=== PATIENT | male | born 1965 | race Caucasian/White ===

== ENCOUNTER → 2017-05-06 | Day surgery (SDC) | payer OTHER ==
[2017-05-04 07:35] VITALS: Ht 198.1 cm; Wt 113.6 kg
[~2017-05-06] VITALS: Ht 198.1 cm; Wt 113.6 kg
[~2017-05-06] MED LIST: CALC500C3 PO; LIDOCAINE HCL 2% 2 ML VIAL (20MG/ML) ONE; PROPOFOL IV EMULSION 10 MG/ML 20 ML VIAL IV ONE; SODIUM CHLORIDE 0.9% 500ML 500 ML IV ONE
[2017-05-06 14:59] VITALS: TEMP 36.5
--- NOTE | 2017-05-06 15:26 | Endo History and Physical ---
History & Physical Date of Service: May 06, 2017. Chief Complaint: diarrhea Referring Physician: Dr. Davalos History of Present Illness 52 yo CM who presents for colonoscopy secondary to diarrhea. Past Surgical History Hx Cardiac Surgery: No Hx Internal Defibrillator: No Hx Pacemaker: No Hx Abdominal Surgery: No Hx of Implantable Prosthesis: No Hx Post-Op Nausea and Vomiting: No Hx Cancer Surgery: No Hx Thoracic Surgery: No Hx Orthopedic: Yes (KNEE SURGERY) Hx Urinary Tract Surgery: No Family History Colon CA Social History Smoking Status: Never Smoker Hx Substance Use: No Hx Alcohol Use: Yes (OCCASIONAL/SOCIAL) Allergies Coded Allergies: No Known Allergies (Unverified , 05/06/17) Current Medications Reported Home Medications Medications Dose Route/Sig Max Daily Dose Days Date Category Tums (Calcium Carbonate) 500 Mg Chew 1 Tab PO UD PRN 05/04/17 Reported Vital Signs Weight (Kilograms): 113.64 Height (Feet): 6 Height (Inches): 6 Date Time Temp Pulse Resp B/P (MAP) Pulse Ox O2 Delivery O2 Flow Rate FiO2 05/06/17 14:59 36.5 63 18 106/71 (83) 97 Room Air Physical Exam General Appearance: WD/WN, no apparent distress Respiratory/Chest: Auscultation: breath sounds normal Cardiovascular: Heart Auscultation: RRR Abdomen: Bowel Sounds: normal Inspection & Palpation: soft, non-distended, no tenderness, guarding & rebound Assessment and Plan Assessment: 52 yo CM who presents for colonoscopy secondary to diarrhea. Plan: Proceed with colonoscopy.
--- NOTE | 2017-05-06 16:05 | Discharge Instructions ---
Endoscopy Patient Instructions Date / Procedure(s) Performed May 06, 2017. Colonoscopy Allergy Information Coded Allergies: No Known Allergies (Unverified , 05/06/17) Discharge Date / Findings May 06, 2017. Random colon biopsies Stool aspirate collected Internal hemorrhoids Medication Instructions OK to resume all medications today as prescribed Reported Home Medications Medications Dose Route/Sig Max Daily Dose Days Date Category Tums (Calcium Carbonate) 500 Mg Chew 1 Tab PO UD PRN 05/04/17 Reported Provider Instructions Activity Restrictions - No exercising or heavy lifting for 24 hours. - Do not drink alcohol the day of the procedure. - Do not drive a car or operate machinery until the day after the procedure. - Do not make any important decisions or sign important papers in 24 hours after the procedure. Following Day: - Return to full activity which may include returning to work/school. Diet Start your diet with liquids and light foods (jello, soup, juice, toast). Then eat your usual diet if not nauseated. Treatment For Common After Affects For mild abdominal pain, bloating, or excessive gas: - Rest - Eat lightly - Lie on right side Follow-Up Information Follow-up with Dr. Davalos as scheduled Anesthesia Information What You Should Know You have had a procedure that required some medicine to reduce anxiety and discomfort. This treatment is called moderate sedation. After receiving the treatment, you may be sleepy, but you will be able to breathe on your own. The effects of the treatment may last for several hours. Follow these instructions along with Activity/Diet recommendations noted above: * Do NOT do anything where dizziness or clumsiness would be dangerous. * Rest quietly at home today, then you can be up and about tomorrow. * Have a responsible person stay with you the rest of today. * You may have had an I.V. today. If so, you may take the dressing off later today. Recommendations Call your doctor if: * Trouble breathing * Continuous vomiting for more than 24 hours * Temperature above 101 degrees * Severe abdominal pain or bloating * Pain not relieved by pain medicine ordered * There is increased drainage or redness from any incision * A large amount of rectal bleeding greater than 2-3 tablespoons. (If you had a polyp/s removed or have hemorrhoids, a small amount of blood - from the rectum is to be expected.) * You have any unanswered questions or concerns. IN THE EVENT OF A SERIOUS EMERGENCY, GO TO THE NEAREST EMERGENCY ROOM Your discharge instructions were prepared by provider Juan Diego Carcamo. Patient Instructions Signature Page Jus Mic Patient (or Guardian) Signature/Date: I have read and understand the instructions given to me by my caregivers. Caregiver/RN/Doctor Signature/Date: The above-named patient and/or guardian has received patient instructions on this date. + Original Patient Signature Page (only) stays with chart. Please make copy for patient.
[2017-05-06 16:24] VITALS: BP 92/69; PULSE 64; O2SAT 95
--- NOTE | 2017-05-06 16:50 | Anesthesiology Progress Note ---
Anesthesia Post Op Note Date & Time May 06, 2017 at 16:49 Vital Signs Pain Intensity: 0 Vital Signs Past 12 Hours Date Time Temp Pulse Resp B/P (MAP) Pulse Ox O2 Delivery O2 Flow Rate FiO2 05/06/17 16:24 64 18 92/69 (77) 95 Room Air 05/06/17 16:13 114 18 114/70 (85) 97 Room Air 05/06/17 16:06 68 18 105/61 (76) 98 Room Air 05/06/17 15:59 68 18 94/54 (67) 97 Room Air 05/06/17 14:59 36.5 63 18 106/71 (83) 97 Room Air Notes Mental Status: alert / awake / arousable, participated in evaluation Pt Amnestic to Procedure: Yes Nausea / Vomiting: adequately controlled Pain: adequately controlled Airway Patency, RR, SpO2: stable & adequate BP & HR: stable & adequate Hydration State: stable & adequate Anesthetic Complications: no major complications apparent
--- NOTE | 2017-05-11 09:48 | GI REPORT ---
Procedure Date: 05/06/2017 3:32 PM Procedure: Colonoscopy Indications: Chronic diarrhea Medicines: Monitored Anesthesia Care Complications: No immediate complications. Estimated Blood Loss: Estimated blood loss: none. Procedure: Pre-Anesthesia Assessment: - Prior to the procedure, a History and Physical was performed, and patient medications and allergies were reviewed. The patient's tolerance of previous anesthesia was also reviewed. The risks and benefits of the procedure and the sedation options and risks were discussed with the patient. All questions were answered, and informed consent was obtained. Prior Anticoagulants: The patient has taken no previous anticoagulant or antiplatelet agents. ASA Grade Assessment: II - A patient with mild systemic disease. After reviewing the risks and benefits, the patient was deemed in satisfactory condition to undergo the procedure. After I obtained informed consent, the scope was passed under direct vision. Throughout the procedure, the patient's blood pressure, pulse, and oxygen saturations were monitored continuously. The scope was introduced through the anus and advanced to the terminal ileum. The colonoscopy was performed without difficulty. The patient tolerated the procedure well. The quality of the bowel preparation was good. The terminal ileum, ileocecal valve, appendiceal orifice, and rectum were photographed. Findings: The perianal and digital rectal examinations were normal. The colon (entire examined portion) appeared normal. Biopsies for histology were taken with a cold forceps from the entire colon for evaluation of microscopic colitis. Fluid aspiration for Stool studies was performed. Non-bleeding internal hemorrhoids were found during retroflexion. The hemorrhoids were small. Impression: - The entire examined colon is normal. Biopsied. Fluid aspiration performed. - Non-bleeding internal hemorrhoids. Recommendation: - Resume previous diet. - Continue present medications. - Repeat colonoscopy for surveillance based on pathology results. - Return to primary care physician as previously scheduled. Juan Diego Carcamo DO 05/11/2017 9:47:23 AM This report has been signed electronically. Note Initiated On: 05/06/2017 3:32 PM I attest to the content of the Intraoperative Record and orders documented therein, exceptions below
== END | disposition home or self-care (01) ==
LOC: C.GI 14:31
PROVIDERS: ATTEND Internal Medicine
DX: R19.7 Diarrhea, unspecified (principal); Z80.0 Family history of malignant neoplasm of digestive organs; K64.8 Other hemorrhoids

== ENCOUNTER → 2017-05-11 | Outpatient (CLI) | payer OTHER ==
[~2017-05-11] MED LIST changes: -LIDOCAINE HCL 2% 2 ML VIAL (20MG/ML) ONE; -PROPOFOL IV EMULSION 10 MG/ML 20 ML VIAL IV ONE; -SODIUM CHLORIDE 0.9% 500ML 500 ML IV ONE
--- NOTE | 2017-05-11 13:02 | DIAGNOSTIC IMAGING REPORT ---
ABDOMEN 2VIEW W/PA CHEST RTN CLINICAL HISTORY: R10.12 LUQ abdominal pain pain. Nausea. COMPARISON STUDY: No previous studies for comparison. FINDINGS: The soft tissues, psoas shadows, renal outlines and intestinal gas pattern appear normal. There is no evidence for bowel obstruction. There is no evidence for free intraperitoneal air. No abnormal abdominal calcifications are seen. A frontal view of the chest was performed and is unremarkable. IMPRESSION: Normal study. The above report was generated using voice recognition software. It may contain grammatical, syntax or spelling errors. Electronically signed by: Brendan Hernandez M.D. 05/11/2017 1:01 PM Dictated Date/Time: 05/11/2017 1:00 PM
== END | disposition home or self-care (01) ==
LOC: C.RADBC 12:08
PROVIDERS: ATTEND Registered Nurse
DX: R10.12 Left upper quadrant pain (principal)

== ENCOUNTER 2023-09-02 13:29 | Inpatient (IN) ==
[2023-09-02 14:45] LABS: Basophils # (auto) 0.03 K/uL (0.00-0.20); Basophils % (auto) 0.3 %; Eosinophils # (auto) 0.12 K/uL (0.00-0.50); Eosinophils % (auto) 1.4 %; Hematocrit (blood only) 38.5 % (42.0-52.0); Hemoglobin 12.8 g/dl (14.0-18.0); Immature Granulocytes # (auto) 0.01 K/uL (0.01-0.20); Immature Granulocytes % (auto) 0.1 %; Lymphocytes # (auto) 2.21 K/uL (1.20-3.40); Lymphocytes % (auto) 25.6 %; Mean Corpuscular Hemoglobin 32.2 pg (25.0-34.0); Mean Corpuscular Hgb Conc 33.2 g/dL (32.0-36.0); Mean Corpuscular Volume 96.7 fL (80.0-100.0); Monocytes # (auto) 0.73 K/uL (0.11-0.59); Monocytes % (auto) 8.5 %; Neutrophils # (auto) 5.53 K/uL (1.40-6.50); Neutrophils % (auto) 64.1 %; Platelet Count 213 K/uL (130-400); RDW Coefficient of Variation 12.8 % (11.5-14.5); RDW Standard Deviation 45.2 fL (36.4-46.3); Red Blood Count 3.98 M/uL (4.70-6.10); White Blood Count 8.63 K/ul (4.8-10.8)
[2023-09-02 14:48] LABS: Albumin Globulin Ratio 1.2 (0.9-2); Albumin Level 3.6 gm/dl (3.4-5.0); Bilirubin,Total 1.3 mg/dl (0.2-1.0); Calcium 8.6 mg/dl (8.6-10.3); Creatinine Clr Calc Pharmacy 153.8 ml/min; Est GFR (African American) 117.8 ml/min; Est GFR (Non-African American) 101.7 ml/min; Magnesium 1.8 mg/dl (1.7-2.4); Potassium 3.9 mmol/L (3.5-5.1); Total Protein 6.6 gm/dl (6.0-8.3)
[2023-09-02] MEDS: METOPROLOL TARTRATE 1 MG/ML VIAL IV STA ×2 (14:51→15:57)
[2023-09-02 14:56] LABS: Troponin I High Sensitivity 7.6 pg/ml (0-20)
[2023-09-02 15:00] LABS: INR 1.1 (0.9-1.1); Prothrombin Time 11.9 Seconds (9.0-12.0)
[2023-09-02 15:04] LABS: Thyroid Stimulating Hormone 1.269 uIu/ml (0.300-4.500)
--- NOTE | 2023-09-02 15:04 | XRay Report ---
XR chest 1V portable HISTORY: new onset afib, egd COMPARISON: Chest 08/20/2023. FINDINGS: No pneumothorax. No pleural effusions. The lungs are clear. No acute fractures. The cardiac silhouette remains top normal in size. IMPRESSION: No acute process. ACT 112: Negative or not required by law. Electronically signed by: Iban Cuevas M.D. 09/02/2023 3:03 PM
[2023-09-02] MEDS: SODIUM CHLORIDE 0.9% 1,000 ML IV ONE (15:25)
--- NOTE | 2023-09-02 15:29 | Emergency Department Note ---
Impression & Plan Atrial fibrillation with rapid ventricular response ED Provider Note Provider: Stan Shipman MD DATE OF SERVICE: 09/02/2023 CHIEF COMPLAINT: New onset A-fib from GI HISTORY OF PRESENT ILLNESS: Patient is a 58-year-old gentleman undergoing workup for some cough issues underwent an EGD today with GI. Afterwards noted to be a new onset A-fib. Patient without history other family history with father. Patient denies significant symptoms. Denies feeling short of breath or chest pain or arm or neck pain. No significant leg swelling reported. States did not have breakfast this morning but was fine yesterday. Father does have a history of A-fib. Patient denies any bleeding issues in the past. Not on blood pressure medication but does have a thyroid history on levothyroxine. No recent fevers. Has been under some stress helping care for family recently. No stomach discomfort or significant nausea at this time. No significant again chest pain. PAST MEDICAL HISTORY: As noted above MEDICATIONS: Reviewed home medications SOCIAL HISTORY: Non-smoker, elementary special education teacher PHYSICAL EXAM: GENERAL: alert and oriented in no acute distress on stretcher Head: normocephalic and atraumatic EYES: No injection, discharge or icterus. NECK: Trachea midline. ENT: Mucous membranes pink and moist. LUNGS: Airway patent. No retractions. Breath sounds clear with good air entry bilaterally. HEART: Irregular regular tachycardic rate and rhythm. No chest wall tenderness ABDOMEN: Soft and non-tender, without guarding or rebound. SKIN: Acyanotic, warm, dry, without rashes EXTREMITIES: Without swelling, tenderness or deformity NEUROLOGICAL: No focal deficits. No aphasia. No facial droop or slurred speech. Normal strength and tone in the extremities. Sensation to gross touch normal. Ambulatory. EK bpm atrial fibrillation with rapid ventricular response. No clear acute ST segment elevation with a QTc of 420. CONTINUOUS CARDIAC MONITORING: was ordered and showed a heart rate of 110s-160s bpm in atrial fibrillation Patient's laboratory studies and imaging reviewed. Differential includes Premature contractions, electrolyte abnormality, cardiac dysrhythmia, thyroid dysfunction, pulmonary embolism, infection, gastrointestinal, as well as other pathologies. IMPRESSION/MEDICAL DECISION MAKING: Family history of new personal history appears to be new onset atrial fibrillation. Given IV dose of metoprolol. Given some IV fluids his blood pressure afterwards a little bit low but he is not symptomatic. Heart rate still somewhat elevated. Chest x-ray reassuring no evidence of perforation benign abdomen. Blood work here without significant anemia hemoglobin 12.8. Normal white blood cell count. No single isolated abnormality signs of renal dysfunction. TSH normal. Troponin normal. Again no chest discomfort or pressure. Not feeling lightheaded or dizzy. Later blood pressure somewhat low here but patient without significant symptoms. Reposition the cuff and blood pressure is improved. Given a second dose of IV metoprolol without real improvement of his rapid A-fib. Blood work again otherwise reassuring. Given some IV magnesium. Given the recalcitrant nature of his A-fib to several dose of metoprolol, proceeded with use of diltiazem and diltiazem drip. Discussed the patient further observation overnight to determine appropriate rate control regimen given his recalcitrant A-fib RVR. [id number] 2 is not significant elevated and will defer any anticoagulation to hospitalist and levee superintendent at this time. DIAGNOSIS: New onset rapid atrial fibrillation DISPOSITION: Hospitalist will evaluate Patient was agreeable with this plan. Critical Care I have personally spent 31 minutes of critical care time in the direct management of this patient. This includes bedside care, interpretation of diagnostic studies, and testing, discussion with consultants, patient, and family members, and other required patient management activities. These 31 minutes is in excess of all separately billable procedures. Past Med/Surg History Problem List (Updated 09/02/23 @ 19:21 by Stan Shipman M.D.) Atrial fibrillation with rapid ventricular response (Acute) Encounter for pre-operative examination Medical History Chronic cough GERD (gastroesophageal reflux disease) Hypothyroidism Surgical History Hx of arthroscopy of knee torn meniscus Hx of colonoscopy History of oral surgery 2022 Family History Father Hypertension Prostate cancer Other No family history of adverse response to anesthesia No family history of bleeding disorder Social History Smoking Status: Never smoker Tobacco Type: Cigarettes Second Hand Exposure: No; Do You Dip or Chew Tobacco: No; Hx Alcohol Use: Yes Alcohol type: beer and wine Alcohol Intake Frequency Comment: socially Hx Substance Use: No Preferred Language: Qatari Communication Ability: Effective Welder Tech Required: No Beliefs That Will Affect Care: None marital status: Single Current Living Situation: Significant Other current occupational status: employed current occupation: Teacher Feels Safe at Home: Yes Assistive Devices: Glasses Allergies Allergies Allergy/AdvReac Type Severity Reaction Status Date / Time amoxicillin AdvReac Unknown Gastrointestinal Verified 09/02/23 11:43 Upset Home Meds Home Medications Medication Instructions Recorded Confirmed levothyroxine 175 mcg capsule 175 mcg PO HS 04/08/23 09/02/23 multivitamin 1 tab PO DAILY 04/08/23 09/02/23 diclofenac sodium 75 mg 75 mg PO BID 07/30/23 09/02/23 tablet,delayed release esomeprazole magnesium 40 mg 40 mg PO BID 08/31/23 09/02/23 capsule,delayed release (Nexium) cholecalciferol (vitamin D3) 25 25 mcg PO DAILY 09/02/23 09/02/23 mcg (1,000 unit) tablet (Vitamin D3) Results & Data (ED) Vital Signs Vital Signs - 24 hr 09/02/23 13:33 09/02/23 13:38 09/02/23 13:39 Temperature 36.8 C Temperature Source Oral Pulse Rate 136 H 135 H 133 H Pulse Rate [Right Finger] Pulse Rate from SpO2 Sensor 94 H Pulse Rhythm Regular Pulse Strength Normal Respiratory Rate 20 14 Respiratory Effort / Characteristics Non-Labored Respiratory Depth Normal Respiratory Pattern Regular Blood Pressure 111/91 111/91 Blood Pressure [Right Arm] Blood Pressure Mean 97 97 Blood Pressure Mean [Right Arm] Blood Pressure Position Sitting Pulse Oximetry 96 95 Oxygen Delivery Method Room Air Sepsis Recent Fever Within 48 Hours No Sepsis New/Unexplained Change in Mental Status N/A Sepsis Action Taken by Nursing No Action Required 09/02/23 14:00 09/02/23 14:51 09/02/23 14:51 Temperature Temperature Source Pulse Rate 155 H 141 H 132 H Pulse Rate [Right Finger] Pulse Rate from SpO2 Sensor 111 H Pulse Rhythm Pulse Strength Respiratory Rate 16 14 Respiratory Effort / Characteristics Respiratory Depth Respiratory Pattern Blood Pressure 114/73 114/73 Blood Pressure [Right Arm] Blood Pressure Mean 86 Blood Pressure Mean [Right Arm] Blood Pressure Position Pulse Oximetry 95 97 Oxygen Delivery Method Room Air Sepsis Recent Fever Within 48 Hours Sepsis New/Unexplained Change in Mental Status Sepsis Action Taken by Nursing 09/02/23 15:00 09/02/23 15:09 09/02/23 15:16 Temperature Temperature Source Pulse Rate 124 H 132 H 125 H Pulse Rate [Right Finger] Pulse Rate from SpO2 Sensor 126 H 78 Pulse Rhythm Pulse Strength Respiratory Rate 18 26 H Respiratory Effort / Characteristics Respiratory Depth Respiratory Pattern Blood Pressure 63/49 L 89/70 L Blood Pressure [Right Arm] Blood Pressure Mean 53 Blood Pressure Mean [Right Arm] Blood Pressure Position Pulse Oximetry 90 94 Oxygen Delivery Method Room Air Room Air Sepsis Recent Fever Within 48 Hours Sepsis New/Unexplained Change in Mental Status Sepsis Action Taken by Nursing 09/02/23 15:33 09/02/23 15:57 09/02/23 16:12 Temperature Temperature Source Pulse Rate 128 H 137 H 84 Pulse Rate [Right Finger] Pulse Rate from SpO2 Sensor Pulse Rhythm Pulse Strength Respiratory Rate 20 Respiratory Effort / Characteristics Respiratory Depth Respiratory Pattern Blood Pressure 113/72 113/72 99/71 L Blood Pressure [Right Arm] Blood Pressure Mean 85 Blood Pressure Mean [Right Arm] Blood Pressure Position Pulse Oximetry 95 Oxygen Delivery Method Room Air Sepsis Recent Fever Within 48 Hours Sepsis New/Unexplained Change in Mental Status Sepsis Action Taken by Nursing 09/02/23 16:27 09/02/23 16:51 09/02/23 17:13 Temperature Temperature Source Pulse Rate 124 H 130 H Pulse Rate [Right Finger] 114 H Pulse Rate from SpO2 Sensor 76 Pulse Rhythm Pulse Strength Respiratory Rate 18 20 14 Respiratory Effort / Characteristics Respiratory Depth Normal Respiratory Pattern Blood Pressure 99/71 L Blood Pressure [Right Arm] 99/71 L Blood Pressure Mean 80 Blood Pressure Mean [Right Arm] 80 Blood Pressure Position Pulse Oximetry 96 94 96 Oxygen Delivery Method Room Air Room Air Room Air Sepsis Recent Fever Within 48 Hours Sepsis New/Unexplained Change in Mental Status Sepsis Action Taken by Nursing 09/02/23 17:30 09/02/23 17:48 Temperature Temperature Source Pulse Rate 96 H 95 H Pulse Rate [Right Finger] Pulse Rate from SpO2 Sensor 57 L Pulse Rhythm Pulse Strength Respiratory Rate 16 Respiratory Effort / Characteristics Respiratory Depth Respiratory Pattern Blood Pressure 89/60 L Blood Pressure [Right Arm] Blood Pressure Mean 69 Blood Pressure Mean [Right Arm] Blood Pressure Position Pulse Oximetry 95 Oxygen Delivery Method Room Air Sepsis Recent Fever Within 48 Hours Sepsis New/Unexplained Change in Mental Status Sepsis Action Taken by Nursing Laboratory Data 09/02/23 14:10 09/02/23 14:10 Lab Results 09/02/23 Range/Units 14:10 WBC 8.63 (4.8-10.8) K/ul RBC 3.98 L (4.70-6.10) M/uL Hgb 12.8 L (14.0-18.0) g/dl Hct 38.5 L (42.0-52.0) % MCV 96.7 (80.0-100.0) fL MCH 32.2 (25.0-34.0) pg MCHC 33.2 (32.0-36.0) g/dL RDW Std Deviation 45.2 (36.4-46.3) fL RDW Coeff of Vanna 12.8 (11.5-14.5) % Plt Count 213 (130-400) K/uL MPV 10.0 (9.4-12.4) fL Immature Gran % (Auto) 0.1 % Neut % (Auto) 64.1 % Lymph % (Auto) 25.6 % [place] % (Auto) 8.5 % Eos % (Auto) 1.4 % Baso % (Auto) 0.3 % Neut # (Auto) 5.53 (1.40-6.50) K/uL Lymph # (Auto) 2.21 (1.20-3.40) K/uL [place] # (Auto) 0.73 H (0.11-0.59) K/uL Eos # (Auto) 0.12 (0.00-0.50) K/uL Baso # (Auto) 0.03 (0.00-0.20) K/uL Immature Gran # (Auto) 0.01 (0.01-0.20) K/uL PT 11.9 (9.0-12.0) Seconds INR 1.1 (0.9-1.1) Sodium 137 (136-145) mmol/L Potassium 3.9 (3.5-5.1) mmol/L Chloride 106 (98-107) mmol/L Carbon Dioxide 25 (21-32) mmol/L Anion Gap 6 (3-11) BUN 20 (6-23) mg/dl Creatinine 0.74 (0.6-1.4) mg/dl Est Cr Clr Drug Dosing 153.8 ml/min Est GFR ( Amer) 117.8 ml/min Est GFR (Non-Af Amer) 101.7 ml/min BUN/Creatinine Ratio 27.0 H (10-20) Glucose 82 (70-99(Fasting)) mg/dl Calcium 8.6 (8.6-10.3) mg/dl Magnesium 1.8 (1.7-2.4) mg/dl Total Bilirubin 1.3 H (0.2-1.0) mg/dl AST 18 (13-39) U/L ALT 15 (7-52) U/L Alkaline Phosphatase 55 (34-104) U/L Troponin I High Sens 7.6 (0-20) pg/ml Total Protein 6.6 (6.0-8.3) gm/dl Albumin 3.6 (3.4-5.0) gm/dl Globulin 3.0 (2.5-4.0) gm/dl Albumin/Globulin Ratio 1.2 (0.9-2) TSH 1.269 (0.300-4.500) uIu/ml Administered Medications Diltiazem HCl 125 mg/ Dextrose 125 mls @ 5 mls/hr IV .Q24H DEANGELO; Protocol Stop: 10/02/23 16:14 Last Admin: 09/02/23 16:53 Dose: 5 mg/hr, 5 mls/hr Documented By: CLEMENTINE Co-signed By: [facility] [place]continued Medications Diltiazem HCl (Diltiazem Hcl 5 Mg/Ml 5 Ml Vial) 10 mg IV NOW STA Stop: 09/02/23 16:12 Last Admin: 09/02/23 16:53 Dose: 10 mg Documented By: CLEMENTINE Co-signed By: BENITEZ Sodium Chloride (Nss) 1,000 mls @ 999 mls/hr IV .Q1H1M ONE Stop: 09/02/23 16:23 Last Infusion: 09/02/23 17:09 Dose: Infused Documented By: Admin: 09/02/23 15:25 Dose: 999 mls/hr Documented By: BENITEZ Magnesium Sulfate/Dextrose (Magnesium Sulfate / D5w) 1 gm in 100 mls @ 200 mls/hr IV Q30M DEANGELO Stop: 09/02/23 16:59 Last Infusion: 09/02/23 17:28 Dose: Infused Documented By: Admin: 09/02/23 16:54 Dose: 200 mls/hr Documented By: Infusion: 09/02/23 16:38 Dose: Infused Documented By: Admin: 09/02/23 16:08 Dose: 200 mls/hr Documented By: [facility] [place] Metoprolol Tartrate (Metoprolol Tartrate 1 Mg/Ml Vial) 5 mg IV NOW STA Stop: 09/02/23 14:37 Last Admin: 09/02/23 14:51 Dose: 5 mg Documented By: [facility] [place] Metoprolol Tartrate (Metoprolol Tartrate 1 Mg/Ml Vial) 5 mg IV NOW STA Stop: 09/02/23 15:12 Last Admin: 09/02/23 15:57 Dose: 5 mg Documented By: [facility] [place] Miscellaneous (Stat Iv Infusion Titration Per Protocol) 1 each N/A NOW STA Stop: 09/02/23 16:12 Last Admin: 09/02/23 16:58 Dose: Not Given Documented By: [facility] [place] Imaging Data Radiologist's Impression: Chest X-Ray 09/02/23 13:44 XR chest 1V portable HISTORY: new onset afib, egd COMPARISON: Chest 08/20/2023. FINDINGS: No pneumothorax. No pleural effusions. The lungs are clear. No acute fractures. The cardiac silhouette remains top normal in size. IMPRESSION: No acute process. ACT 112: Negative or not required by law. Electronically signed by: Iban Cuevas M.D. 09/02/2023 3:03 PM Discharge Plan Visit Data Chief Complaint: Cardiac Assessment Stated Complaint: AFIB ED Provider: Stan Shipman Discharge Problem: Atrial fibrillation with rapid ventricular response Patient Disposition: Being Evaluated by Hospitalist Forms Stand Alone Forms: My [facility] Prescriptions Prescriptions: No Action levothyroxine 175 mcg capsule 175 mcg PO HS multivitamin Tablet 1 tab PO DAILY cholecalciferol (vitamin D3) [Vitamin D3] 25 mcg (1,000 unit) Tablet 25 mcg PO DAILY diclofenac sodium 75 mg Tablet,Delayed Release (Dr/Ec) 75 mg PO BID esomeprazole magnesium [Nexium] 40 mg Capsule,Delayed Release(Dr/Ec) 40 mg PO BID Referrals Referrals: Robin Dumont [Primary Care Provider] -
[2023-09-02] MEDS: MAGNESIUM SULFATE / D5W 1 GM/100 ML BAG IV SCH (16:08)
[2023-09-02] MEDS: dilTIAZem HCl 5 MG/ML 5 ML VIAL IV STA (16:53)
[2023-09-02] MEDS: dilTIAZem HCL 125 MG in DEXTROSE 5% 100 ML IV SCH (16:53)
[2023-09-02] MEDS: STAT IV Infusion **Titration per Protocol STA (16:58)
--- NOTE | 2023-09-02 18:35 | Electrocardiogram Report ---
Test Reason : Blood Pressure : / mmHG Vent. Rate : 130 BPM Atrial Rate : 000 BPM P-R Int : 000 ms QRS Dur : 110 ms QT Int : 286 ms P-R-T Axes : 000 -01 029 degrees QTc Int : 420 ms Atrial fibrillation with rapid ventricular response with premature ventricular or aberrantly conducte d complexes Abnormal ECG When compared with ECG of 02-SEP-2023 12:52, No significant change was found Confirmed by Yobany Wells ([id number]) on 09/02/2023 6:35:41 PM Referred By: REFERRED SELF Confirmed By:Bandar Wells
--- NOTE | 2023-09-02 18:47 | History & Physical Report ---
Date of Service September 02, 2023 Assessment & Plan (1) Atrial fibrillation with rapid ventricular response: (2) New onset atrial fibrillation: (3) Hypotension: (4) GERD (gastroesophageal reflux disease): (5) Hypothyroidism: Plan Patient is a 58 yo M w/ a PMHx of GERD (w/ cough), hypothyroidism, surgical Hx of colonoscopy, EGD, and arthroscopy of knee who presented with atrial fibrillation after getting an EGD earlier this morning. 1) New onset atrial fibrillation/ AFib w/ RVR - MgSO4, 1 g, IV, given; 2 x metoprolol, 5 mg, IV given; diltiazem, 10 mg, IV given; placed on diltiazem, 125 mg/24 hr, IV drip - metoprolol, 25 mg, PO, q6hr after BP has normalized and convert from diltiazem drip - order TTE, consider ordering A1C - patient w/ BMI of 28.7, only 1-2 alcohol drinks/month, no HTN, no T2DM - [id number] score, 0 --> anticoagulation not indicated - Mg, 1.8 and K, 3.9 - repeat BMP and Mg for AM labs 2) Hypotension - patient with BP's < 90/60 - give 1000 mL LR bolus 3) Hypothyroidism - continue levothyroxine, 175 mcg - TSH, 1.27 4) GERD/chronic cough/ S/P EGD - pantoprazole 40 mg, PO, BID - discontinue diclofenac during pt's hospital stay Code status: Full code Disposition: PCT-Tele DVT prophylaxis: ambulation FENGI: Regular diet History of Present Illness Chief Complaint: New onset atrial fibrillation after an EGD this morning Primary Care Provider: Robin Dumont Patient is a 58 yo M w/ a PMHx of GERD (w/ cough), hypothyroidism, surgical Hx of colonoscopy, EGD, and arthroscopy of knee who presented with atrial fibrillation after getting an EGD earlier this morning. Currently, although he is in AFib, he is rate-controlled, after receiving metoprolol, 5 mg x 2 doses in ED, followed by diltiazem, 125 mg and diltiazem, 10 mg. Patient does not endorse currently feeling any palpitations, shortness of breath, weakness, fatigue, increased urinary frequency etc. Father also diagnosed with AFib about 5-10 years ago, and is currently ~ 96 years old. Patient able to ambulate to bathroom without feeling dizzy, lightheaded, or feeling like he'll lose his balance and fall. Patient without history of venous thromboembolism, T2DM, stroke, or HTN. Allergies Allergy/AdvReac Type Severity Reaction Status Date / Time amoxicillin AdvReac Unknown Gastrointestinal Verified 09/02/23 11:43 Upset Home Medications Medication Instructions Recorded Confirmed Type levothyroxine 175 mcg capsule 175 mcg PO HS 04/08/23 09/02/23 History multivitamin 1 tab PO DAILY 04/08/23 09/02/23 History diclofenac sodium 75 mg 75 mg PO BID 07/30/23 09/02/23 History tablet,delayed release esomeprazole magnesium 40 mg 40 mg PO BID 08/31/23 09/02/23 History capsule,delayed release (Nexium) cholecalciferol (vitamin D3) 25 25 mcg PO DAILY 09/02/23 09/02/23 History mcg (1,000 unit) tablet (Vitamin D3) Past Med/Surg History Problem List (Updated 09/02/23 @ 20:32 by Yobany Stockton MD) Hypotension New onset atrial fibrillation Atrial fibrillation with rapid ventricular response (Acute) Encounter for pre-operative examination Medical History Chronic cough GERD (gastroesophageal reflux disease) Hypothyroidism Surgical History Hx of arthroscopy of knee torn meniscus Hx of colonoscopy History of oral surgery 2022 Family History Father Hypertension Prostate cancer Other No family history of adverse response to anesthesia No family history of bleeding disorder Social History Smoking Status: Never smoker Tobacco Type: Cigarettes Second Hand Exposure: No; Do You Dip or Chew Tobacco: No; Tobacco Cessation Education Requested by Patient: No Hx Alcohol Use: Yes Alcohol type: beer and wine Alcohol Intake Frequency Comment: socially Hx Substance Use: No Preferred Language: Occitan Communication Ability: Effective Associate Relations Specialist Required: No Beliefs That Will Affect Care: None marital status: Single Current Living Situation: Alone Current Living Situation Comment: lives at home alone current occupational status: employed current occupation: Teacher Other Information That Helps Us Care for You: No Feels Safe at Home: Yes Assistive Devices: Glasses Review of Systems Constitutional: no fever, no chills, no fatigue and no weakness Eyes: no worsening vision Ear, Nose, Mouth, Throat: no dizziness, no hoarseness, no dysphagia and no pain with swallowing Respiratory: + cough; no chest congestion and no dysp nai Cardiovascular: no chest pain and no palpitations Gastrointestinal: no abdominal pain, no nausea, no vomiting, no constipation and no diarrhea/loose stools Neurologic: no unsteadiness, no tingling, no numbness, no dizziness and no headache(s) Physical Exam Constitutional: WD/WN, vitals as above Respiratory: normal respiratory effort, lungs clear to auscultation Cardiovascular: Rate/Rhythm: + irregularly irregular Heart Sounds: no gallop and no murmur Extremities: normal capillary refill; no calf tenderness and no pedal edema Gastrointestinal (Abdomen): normal bowel sounds, soft, nontender, no hepatospl enomegaly Psychiatric: A+Ox3, euthymic affect Genitourinary: no CVA tenderness and no edema Results & Data Results & Data Vital Signs (Past 12 Hours) Vital Signs Temp Pulse Pulse Resp BP BP Pulse Ox 09/02/23 17:48 95 H 09/02/23 17:30 96 H 16 89/60 L 95 09/02/23 17:13 114 H 14 99/71 L 96 09/02/23 16:51 130 H 20 99/71 L 94 09/02/23 16:27 124 H 18 96 09/02/23 16:12 84 99/71 L 09/02/23 15:57 137 H 113/72 09/02/23 15:33 128 H 20 113/72 95 09/02/23 15:16 125 H 89/70 L 09/02/23 15:09 132 H 26 H 63/49 L 94 09/02/23 15:00 124 H 18 90 09/02/23 14:51 132 H 14 97 09/02/23 14:51 141 H 114/73 09/02/23 14:00 155 H 16 114/73 95 09/02/23 13:39 133 H 14 111/91 95 09/02/23 13:38 135 H 09/02/23 13:33 36.8 C 136 H 20 111/91 96 O2 Del Method 07/10/24 17:48 09/02/23 17:30 Room Air 09/02/23 17:13 Room Air 09/02/23 16:51 Room Air 09/02/23 16:27 Room Air 09/02/23 16:12 09/02/23 15:57 09/02/23 15:33 Room Air 09/02/23 15:16 09/02/23 15:09 Room Air 09/02/23 15:00 Room Air 09/02/23 14:51 Room Air 09/02/23 14:51 09/02/23 14:00 09/02/23 13:39 09/02/23 13:38 09/02/23 13:33 Room Air
[2023-09-02] MEDS: LACTATED RINGER'S 1,000 ML IV ONE (21:20)
[2023-09-02] MEDS: PANTOprazole 40 MG TAB PO SCH (22:01)
[2023-09-02] MEDS: LEVOTHYROXINE SODIUM 175 MCG TABLET PO SCH (22:02)
[2023-09-02] MEDS: METOPROLOL TARTRATE 25 MG TAB PO SCH (22:52)
[2023-09-03 07:13] LABS: Calcium 8.5 mg/dl (8.6-10.3); Est GFR (African American) 114.1 ml/min; Est GFR (Non-African American) 98.5 ml/min; Potassium 4.2 mmol/L (3.5-5.1)
[2023-09-03] MEDS: DICLOFENAC SODIUM 75 MG TABCR PO SCH (07:19)
[2023-09-03 09:04] LABS: T4 Free Thyroxine 1.18 ng/dl (0.61-1.60)
[2023-09-03] MEDS: CHOLECALCIFEROL 25 MCG (1000 UNITS) TAB PO SCH (09:34)
[2023-09-03] MEDS: METOPROLOL TARTRATE 50 MG TAB PO SCH (11:55)
--- NOTE | 2023-09-03 12:28 | Hospitalist Progress Note ---
Date of Service September 03, 2023 Assessment & Plan (1) New onset atrial fibrillation: Plan: Telemetry. Continue metoprolol therapy. Await cardiology consultation. He may require cardioversion. Cardiac echo report pending. Thyroid profile pending (2) Hypotension: Plan: Acute onset due to uncontrolled atrial fibrillation. Resolved with IV fluids (3) Acute gastritis without bleeding: Plan: Seen on outpatient EGD yesterday, September 01. Continue PPI therapy (4) Primary hypothyroidism: Plan: Stable. Continue current thyroid replacement therapy (5) GERD (gastroesophageal reflux disease): Plan: Currently on PPI therapy Plan Hopeful discharge to home within the next day or 2 Admission and Anticipated Discharge Date Admission Date: September 02, 2023 Subjective Alert and oriented. No distress. He was walking in the hallway with his when I first arrived to see him. Diltiazem drip was initially switched to metoprolol 25 mg every 6 hours then to metoprolol tartrate 50 mg twice daily. He remains in atrial fibrillation with a mildly elevated heart rate. Cardiology consultation is pending. He may need to undergo cardioversion. His outpatient EGD revealed evidence of gastritis without bleeding. Review of Systems 2 Review of Systems: Constitutional-no fever or chills ENT-no blurred vision, no double vision, no epistaxis, no sore throat Respiratory-no cough, no wheezing, no shortness of breath Cardiac-no palpitations, no chest pain, no syncope GI-no nausea, vomiting, diarrhea, melena, hematochezia -no urinary retention, no urinary incontinence, no dysuria, no hematuria Musculoskeletal-no joint pain, no muscle tenderness Skin-no bruising, no rashes, no pruritus Neuro-no isolated weakness, no paresthesia, no weakness Psych-no depression, no anxiety Physical Exam 2 Physical Exam: General-alert and oriented x3, no fever, no chills HEENT-head atraumatic and normocephalic, pupils equal and reactive to light, extraocular muscles intact Neck-no lymphadenopathy or thyromegaly, trachea midline Chest-clear to auscultation. No rales, wheezing or rhonchi Cardiac-rapid irregular rate and rhythm. Normal S1 and S2 Abdomen-normal bowel sounds, no hepatosplenomegaly Extremities-no cyanosis, clubbing, or edema Neuro-cranial nerves II through XII intact, motor and sensory function within normal limits, strength symmetrical, no focal deficits Psych-normal affect, normal mood Results & Data Results & Data Vital Signs (Past 12 Hours) Vital Signs Temp Pulse Resp BP BP Pulse Ox O2 Del Method 09/03/23 11:30 120 H 107/72 09/03/23 11:06 36.9 C 90 20 100/69 97 Room Air 09/03/23 09:33 120 H 117/84 09/03/23 08:12 36.9 C 102 H 20 111/72 97 Room Air 09/03/23 02:58 36.5 C 80 18 100/63 97 Room Air Laboratory Results 09/02/23 14:10 09/03/23 05:46 PG Care Time/CCT Total # of Minutes Spent Total Time Spent with Patient: Total time spent is greater than 50% in coordination of care (as documented) at patient's floor/unit and/or counseling patient: Coding Level of Care Code 80331 SUB INP/OBS CARE 3/50MIN Diagnoses New onset atrial fibrillation I48.91 Hypotension I95.9 Acute gastritis without bleeding K29.00 Primary hypothyroidism E03.9 GERD (gastroesophageal reflux disease) K21.9
[2023-09-03] MEDS ORDERED: STAT IV Infusion **Titration per Protocol STA ×2 (14:11→14:28)
[2023-09-03] MEDS ORDERED: AMIODARONE IV BOLUS & DRIP IV STA ×2 (14:11→14:28)
[2023-09-03] MEDS ORDERED: 0.2 MICRON FILTER SET 1 EACH IV STA ×2 (14:11→14:34)
[2023-09-03] MEDS ORDERED: AMIODARONE / D5W 360 MG/200 ML BAG IV ONE (14:30)
--- NOTE | 2023-09-03 14:41 | XCELERA ---
[id number] \\[id number]
[2023-09-03] MEDS: AMIODARONE / D5W 150 MG/100 ML BAG IV STA ×2 (15:11→15:13)
[2023-09-03] MEDS: AMIODARONE / D5W 360 MG/200 ML BAG IV ONE (15:12)
[2023-09-03] MEDS ORDERED: AMIODARONE / D5W 360 MG/200 ML BAG IV SCH ×3 (15:45→20:30)
[2023-09-03] MEDS: AMIODARONE / D5W 360 MG/200 ML BAG IV SCH (15:45)
--- NOTE | 2023-09-03 17:32 | Cardiology Consultation ---
Date of Consultation September 03, 2023 Assessment & Plan (1) Atrial fibrillation with rapid ventricular response: (2) Cardiomyopathy: (3) Mitral regurgitation: Plan 1. Atrial fibrillation: This appears to have started during his endoscopy. This would not be unusual given the proximity of the esophagus to the left atrium. However, he does have some substrate for atrial fibrillation with his cardiomyopathy mild left atrial dilation. Unclear if he has had occult episodes over time. While his thinks he has apneic episodes, he does not have significant daytime somnolence suggest significant sleep apnea. No symptoms to suggest he has had some. I would expect him to convert back to normal since this appears to be his 1st episode. He has been started on amiodarone infusion in the hopes of affecting cardioversion as well. I think we will give him some Lovenox and plan on elective cardioversion tomorrow should he not cardiovert on his own. He is a chads Vasc score 1 based on his reduced LV systolic function. Will probably provide him with some systemic anticoagulation for few weeks and get a reassessment of LV function at that time. 2. Cardiomyopathy: Unclear etiology. Not likely ischemic. Not likely tachycardia induced given the known duration of his current atrial fibrillation. Will run some standard tests for ischemic cardiomyopathy. Will start him on some therapy and reassess the LV function in a few weeks. Given his demographic he would likely require an ischemic evaluation as well. He seems well compensated currently. 3. Mitral regurgitation: Mild 4. Cough: [place] to be related to GERD, but given the new findings on his echocardiogram I suppose it is possible to related to slightly increased pulmonary pressures and his cardiomyopathy. We will see if this improves with treatment. History of Present Illness Reason for Consultation: Atrial fibrillation Requesting Physician: Odalis Attending Physician: Tariq Ty MD History of Present Illness The patient is a 58-year-old gentleman without a known history of cardiac disease who presented yesterday for endoscopy to evaluate symptoms of coughing at nighttime and burning sensation in the chest. He the time of his EGD the patient presented in sinus rhythm but in the procedure was noted to be tachycardic. Postprocedure EKG demonstrated atrial fibrillation with a rapid ventricular rate and he was sent to the emergency room for evaluation. Patient was subsequently admitted and started on oral metoprolol. Patient states he has been unaware of any palpitations recently. He has been unaware of any racing heart rates. Maintained his usual level of activity which generally involves some resistance training and mild cardiovascular training. He has not experienced limiting dyspnea or exertional chest pain. He has not had dizziness or lightheadedness. He has had some reflux which bothersome at nighttime. Does sit slightly upright in order to sleep better. He was tried on Pepcid and subsequently a proton pump inhibitor with minimal improvement in his symptoms. At the time my interview the patient clear to feeling well. Again diet palpitations. No chest pain. No breathing difficulty. He has been ambulatory without dizziness lightheadedness. Allergies Allergy/AdvReac Type Severity Reaction Status Date / Time amoxicillin AdvReac Unknown Gastrointestinal Verified 09/02/23 11:43 Upset Home Medications Medication Instructions Recorded Confirmed Type levothyroxine 175 mcg capsule 175 mcg PO HS 04/08/23 09/02/23 History multivitamin 1 tab PO DAILY 04/08/23 09/02/23 History diclofenac sodium 75 mg 75 mg PO BID 07/30/23 09/02/23 History tablet,delayed release esomeprazole magnesium 40 mg 40 mg PO BID 08/31/23 09/02/23 History capsule,delayed release (Nexium) cholecalciferol (vitamin D3) 25 25 mcg PO DAILY 09/02/23 09/02/23 History mcg (1,000 unit) tablet (Vitamin D3) Patient History Medical History Chronic cough GERD (gastroesophageal reflux disease) Hypothyroidism Surgical History Hx of arthroscopy of knee torn meniscus Hx of colonoscopy History of oral surgery 2022 Family History Father Hypertension Prostate cancer Other No family history of adverse response to anesthesia No family history of bleeding disorder Social History Smoking Status: Never smoker Tobacco Type: Cigarettes Second Hand Exposure: No; Do You Dip or Chew Tobacco: No; Tobacco Cessation Education Requested by Patient: No Hx Alcohol Use: Yes Alcohol type: beer and wine Alcohol Intake Frequency Comment: socially Hx Substance Use: No Preferred Language: Spanish Communication Ability: Effective Air Pollution Engineer Required: No Beliefs That Will Affect Care: None marital status: Single Current Living Situation: Alone Current Living Situation Comment: lives at home alone current occupational status: employed current occupation: Teacher Other Information That Helps Us Care for You: No Feels Safe at Home: Yes Assistive Devices: None Review of Systems Review of Systems: Per HPI. No lower extremity edema. No increasing abdominal girth. No snoring at nighttime. His states that he does have apnea because he stops breathing on occasion. Patient did not report symptoms of daytime somnolence. Physical Exam Physical Exam: The patient is alert and oriented. Mood and affect appeared normal. He answered all questions appropriately. HEENT: Pupils are equal and reactive to light and accommodation. Extraocular movements are intact. The sclerae are anicteric. Neuro: Cranial nerves intact Lungs: Clear to auscultation bilaterally. He has good air movement without use of accessory muscles. No rales wheezes or rhonchi. Cardiac: Heart demonstrates an irregular rhythm and elevated rate. Normal S1 and S2. No murmurs on examination. Pulses: The patient has palpable radial pulses bilaterally that are equal in intensity Extremities: There was no evidence of hypoperfusion. There is no cyanosis or clubbing. There is no edema. Skin: I did not appreciate any rashes on examination today. Results & Data Vital Signs (Past 12 Hours) Vital Signs Temp Pulse Pulse Resp BP BP Pulse Ox 09/03/23 15:31 37.5 C 73 19 103/67 96 09/03/23 11:30 120 H 107/72 09/03/23 11:06 36.9 C 90 20 100/69 97 09/03/23 09:33 120 H 117/84 09/03/23 08:12 36.9 C 102 H 20 111/72 97 09/03/23 08:00 121 H O2 Del Method 09/03/23 15:31 Room Air 09/03/23 11:30 09/03/23 11:06 Room Air 09/03/23 09:33 09/03/23 08:12 Room Air 09/03/23 08:00 Laboratory Results Abnormal Lab Results 09/02/23 09/03/23 14:10 05:46 Sodium 139 Potassium 4.2 Chloride 108 H Carbon Dioxide 26 Anion Gap 5 BUN 20 Creatinine 0.80 Est Cr Clr Drug Dosing 143.0 Est GFR ( Amer) 114.1 Est GFR (Non-Af Amer) 98.5 BUN/Creatinine Ratio 25.0 H Glucose 97 Calcium 8.5 L Magnesium 2.0 Free T4 1.18 Free T3 2.84 Diagnostic Findings Echocardiogram 09/03/2023: Moderately reduced LV systolic function with ejection fraction 30 35%. Mild left atrial dilation. Mild mitral regurgitation. Chest x-ray Obtained 09/02/2023: No acute process ECG Additional Comments: EKG obtained 09/02/2023: Atrial fibrillation with rapid ventricular response and aberrant conduction. PG Care Time/CCT Total # of Minutes Spent Total Time Spent with Patient: Total time spent is greater than 50% in coordination of care (as documented) at patient's floor/unit and/or counseling patient: Coding Level of Care Code 31144 INT INP/OBS CARE 3/75MIN Diagnoses Atrial fibrillation with rapid ventricular response I48.91 Cardiomyopathy I42.9 Mitral regurgitation I34.0
[2023-09-03] MEDS ORDERED: ENOXAPARIN 1 MG/KG SC SCH (17:45)
[2023-09-03] MEDS: ENOXAPARIN INJ 120 MG/0.8 ML SYR SQ SCH (18:23)
--- NOTE | 2023-09-04 09:50 | Anesthesiology Consultation ---
Date of Service September 04, 2023 Assessment & Plan Chart Review Chart Review: entry level finance initiated History Surgery Operation Date: 09/04/23 10:30 Proposed Procedures p Cardioversion - Yobany Wells MD Height/Weight Height: 6 ft 6 in Weight: 113.4 kg Allergies Allergy/AdvReac Type Severity Reaction Status Date / Time amoxicillin AdvReac Unknown Gastrointestinal Verified 09/02/23 11:43 Upset Medications Home Medications Medication Instructions Recorded Confirmed Last Taken levothyroxine 175 mcg capsule 175 mcg PO HS 04/08/23 09/02/23 09/01/23 multivitamin 1 tab PO DAILY 04/08/23 09/02/23 09/01/23 diclofenac sodium 75 mg 75 mg PO BID 07/30/23 09/02/23 09/01/23 tablet,delayed release esomeprazole magnesium 40 mg 40 mg PO BID 08/31/23 09/02/23 09/01/23 capsule,delayed release (Nexium) cholecalciferol (vitamin D3) 25 25 mcg PO DAILY 09/02/23 09/02/23 Unknown mcg (1,000 unit) tablet (Vitamin D3) Active Medications Generic Name Dose Route Start Last Admin Trade Name Freq PRN Reason Stop Dose Admin Enoxaparin Sodium 111 mg 09/03/23 18:00 09/04/23 05:50 Enoxaparin Inj 120 Mg/0.8 Ml Syr SQ 10/03/23 17:59 111 mg Q12H DEANGELO Administration Amiodarone HCl/Dextrose 360 mg in 200 mls @ 16.667 mls/hr 09/03/23 15:40 09/04/23 03:13 Nexterone / D5w IV 10/03/23 15:39 0.5 mg/min .Q12H DEANGELO 16.7 mls/hr Administration 0.5 MG/MIN Levothyroxine Sodium 175 mcg 09/02/23 21:04 09/03/23 20:30 Levothyroxine Sodium 175 Mcg Tablet PO 10/02/23 21:03 175 mcg HS DEANGELO Administration Metoprolol Tartrate 50 mg 09/03/23 11:15 09/04/23 08:57 Metoprolol Tartrate 50 Mg Tab PO 10/03/23 11:14 Not Given BID DEANGELO Pantoprazole Sodium 40 mg 09/02/23 21:15 07/12/24 08:07 Pantoprazole 40 Mg Tab PO 10/02/23 21:14 40 mg BID DEANGELO Administration Vitamin D 25 mcg 09/03/23 09:00 09/04/23 08:08 Cholecalciferol 25 Mcg (1000 Units) Tab PO 10/03/23 08:59 25 mcg DAILY DEANGELO Administration Past Medical History Medical History Chronic cough GERD (gastroesophageal reflux disease) Hypothyroidism Past Family History Family History Father Hypertension Prostate cancer Other No family history of adverse response to anesthesia No family history of bleeding disorder Past Surgical History Surgical History Hx of arthroscopy of knee torn meniscus Hx of colonoscopy History of oral surgery 2022 Social History Smoking Status: Never smoker Do You Dip or Chew Tobacco: No Hx Alcohol Use: Yes Alcohol type: beer and wine alcohol intake frequency: holidays/special occasions only Hx Substance Use: No substance use type: does not use Physical Exam Vital Signs Last Vital Signs Temp 98.8 F 09/04/23 08:03 Pulse 118 H 09/04/23 08:03 Resp 20 09/04/23 08:03 BP 114/76 09/04/23 08:03 Pulse Ox 98 09/04/23 08:03 O2 Del Method Room Air 09/04/23 08:03 Testing Laboratory Results 09/02/23 14:10 09/03/23 05:46 PT 11.9 Seconds (9.0-12.0) 09/02/23 14:10 INR 1.1 (0.9-1.1) 09/02/23 14:10 Electrocardiogram Date: 09/03/23 Atrial fibrillation with rapid ventricular response with premature ventricular or aberrantly conducted complexes, rate 103 bpm Incomplete right bundle branch block Abnormal ECG When compared with ECG of 02-SEP-2023 13:37, No significant change was found Chest X-Ray Date: 09/02/23 Findings: + NAD Echocardiogram Date: 09/03/23 LV systolic function is moderately reduced LA is mildly dilated Mild MR RVSP is normal
[2023-09-04] MEDS ORDERED: PROPOFOL IV EMULSION 10 MG/ML 20 ML VIAL IV ONE (10:38)
[2023-09-04] MEDS ORDERED: LIDOCAINE 2% 2 ML VIAL/AMP(20MG/ML) INFIL ONE (10:38)
--- NOTE | 2023-09-04 10:59 | Cardioversion ---
Date of Service September 04, 2023 PG Electrical Cardioversion Rp Electrical Cardioversion Report Procedure performed: Cardioversion Indication: Atrial fibrillation Staff futures trader: Yobany Wells MD Procedure in detail: The patient was informed of the risks benefits and alternatives to the intended procedure. He understood such which proceed. He was taken to the cardiac catheterization suite holding area. A general anesthetic was administered by the Anesthesiology Service. Once appropriately anesthetized, the patient was cardioverted using 200 joules delivered in a biphasic fashion. This returned the patient to sinus rhythm. The patient tolerated procedure well, there were no immediate complications. Patient was neurologically intact subsequent to the procedure. Impression: Successful cardioversion from atrial fibrillation to normal sinus rhythm Coding Level of Care Code 49375 CARDIOVERSION, ELECTIVE Additional Codes Electrical Cardioversion Report ([id number])
--- NOTE | 2023-09-04 11:04 | Cardiology Progress Note ---
Date of Service September 04, 2023 Assessment & Plan (1) Atrial fibrillation with rapid ventricular response: (2) Cardiomyopathy: (3) Mitral regurgitation: Plan 1. Atrial fibrillation: The patient remained in atrial fibrillation this morning. Amiodarone was discontinued and cardioversion performed. He will need to go home on systemic anticoagulation. This could be apixaban 5 mg twice daily or Xarelto 20 mg daily. We will have him follow-up in our clinic for re- evaluation. 2. Cardiomyopathy: Unclear etiology. Not likely ischemic. Not likely tachycardia induced given the known duration of his current atrial fibrillation. Lab tests all appear normal. No evidence of hemochromatosis. Awaiting protein electrophoresis. I think we will send him home on metoprolol succinate 25 mg daily. Low-dose losartan would also be indicated if blood pressure allows. 3. Mitral regurgitation: Mild 4. Cough: Hallie to be related to GERD, but given the new findings on his echocardiogram I suppose it is possible to related to slightly increased pulmonary pressures and his cardiomyopathy. We will see if this improves with treatment. Admission and Anticipated Discharge Date Admission Date: September 02, 2023 Subjective This morning patient claimed he feeling well. No sense of palpitation. No breathing difficulty. No chest pain. Review of Systems Review of Systems: Per HPI Physical Exam Physical Exam: The patient is alert and oriented. Mood and affect appeared normal. He answered all questions appropriately. HEENT: Pupils are equal and reactive to light and accommodation. Extraocular movements are intact. The sclerae are anicteric. Neuro: Cranial nerves intact Lungs: Clear to auscultation bilaterally. He has good air movement without use of accessory muscles. No rales wheezes or rhonchi. Cardiac: Heart demonstrates an irregular rhythm and elevated rate. Normal S1 and S2. No murmurs on examination. Pulses: The patient has palpable radial pulses bilaterally that are equal in intensity Extremities: There was no evidence of hypoperfusion. There is no cyanosis or clubbing. There is no edema. Skin: I did not appreciate any rashes on examination today. Results & Data Vital Signs (Past 12 Hours) Vital Signs Temp Pulse Resp BP BP Pulse Ox O2 Del Method 09/04/23 10:42 36.5 C 78 14 104/72 100 Room Air 09/04/23 10:26 36.4 C L 130 H 14 121/84 100 Room Air 09/04/23 08:03 37.1 C 118 H 20 114/76 98 Room Air 09/04/23 03:33 36.8 C 115 H 20 116/79 95 Room Air 09/03/23 23:13 37.0 C 126 H 20 129/90 95 Room Air Laboratory Results Abnormal Lab Results 09/04/23 06:24 Iron 30 L Ferritin 210.0 PG Care Time/CCT Total # of Minutes Spent Total Time Spent with Patient: Total time spent is greater than 50% in coordination of care (as documented) at patient's floor/unit and/or counseling patient: Coding Level of Care Code 74354 SUB INP/OBS CARE 2/35MIN Diagnoses Atrial fibrillation with rapid ventricular response I48.91 Cardiomyopathy I42.9 Mitral regurgitation I34.0
--- NOTE | 2023-09-04 11:10 | Anesthesiology Progress Note ---
Date of Service September 04, 2023 Anesthesia Post Procedure Vital Signs Vital Signs: Temp Pulse Pulse Resp BP BP Pulse Ox 09/04/23 10:42 97.7 F 78 14 104/72 100 09/04/23 10:26 97.5 F L 130 H 14 121/84 100 09/04/23 08:03 98.8 F 118 H 20 114/76 98 09/04/23 03:33 98.2 F 115 H 20 116/79 95 09/03/23 23:13 98.6 F 126 H 20 129/90 95 09/03/23 21:29 109 H 09/03/23 20:28 95 H 107/88 09/03/23 19:47 98.6 F 86 20 96/61 L 98 09/03/23 15:31 99.5 F 73 19 103/67 96 09/03/23 11:30 120 H 107/72 O2 Del Method 09/04/23 10:42 Room Air 09/04/23 10:26 Room Air 09/04/23 08:03 Room Air 09/04/23 03:33 Room Air 09/03/23 23:13 Room Air 09/03/23 21:29 09/03/23 20:28 09/03/23 19:47 Room Air 09/03/23 15:31 Room Air 09/03/23 11:30 Transfer of Care Handoff Completed per policy Notes Mental Status: alert / awake / arousable and participated in evaluation Patient Amnestic to Procedure: Yes Nausea / Vomiting: adequately controlled Pain: adequately controlled Airway Patency, RR, SpO2: stable & adequate BP & HR: stable & adequate Hydration State: stable & adequate Anesthetic Complications: no major complications apparent and Pt Satisfied with anesthetic care
--- NOTE | 2023-09-04 12:45 | Electrocardiogram Report ---
Test Reason : Blood Pressure : / mmHG Vent. Rate : 103 BPM Atrial Rate : 122 BPM P-R Int : 000 ms QRS Dur : 102 ms QT Int : 346 ms P-R-T Axes : 000 013 023 degrees QTc Int : 453 ms Atrial fibrillation with rapid ventricular response with premature ventricular or aberrantly conducte d complexes Incomplete right bundle branch block Abnormal ECG When compared with ECG of 02-SEP-2023 13:37, No significant change was found Confirmed by Yobany Wells ([id number]) on 09/04/2023 12:45:22 PM Referred By: REFERRED SELF Confirmed By:Bandar Wells
--- NOTE | 2023-09-04 12:46 | Hospitalist Progress Note ---
Date of Service September 04, 2023 Assessment & Plan (1) New onset atrial fibrillation: Plan: Telemetry. He was electively cardioverted today, September 03, back to normal sinus rhythm. He probably will be discharged home later today on Eliquis, losartan, and metoprolol succinate. He will follow-up with cardiology as an outpatient. Cardiac echo report noted. He has left ventricular systolic dysfunction which is global which will need further evaluation. (2) Hypotension: Plan: Acute onset on admission due to uncontrolled atrial fibrillation. Resolved with IV fluids (3) Acute gastritis without bleeding: Plan: Seen on outpatient EGD on September 01. Continue PPI therapy (4) Primary hypothyroidism: Plan: Stable. Continue current thyroid replacement therapy (5) GERD (gastroesophageal reflux disease): Plan: Currently on PPI therapy Plan Hopeful discharge to home later today, September 03, on Eliquis, losartan, metoprolol succinate Admission and Anticipated Discharge Date Admission Date: September 02, 2023 Subjective The patient was seen after he returned from elective cardioversion. He is now in normal sinus rhythm. He probably will be discharged home later today on Eliquis metoprolol succinate and losartan. Review of Systems 2 Review of Systems: Constitutional-no fever or chills ENT-no blurred vision, no double vision, no epistaxis, no sore throat Respiratory-no cough, no wheezing, no shortness of breath Cardiac-no palpitations, no chest pain, no syncope GI-no nausea, vomiting, diarrhea, melena, hematochezia -no urinary retention, no urinary incontinence, no dysuria, no hematuria Musculoskeletal-no joint pain, no muscle tenderness Skin-no bruising, no rashes, no pruritus Neuro-no isolated weakness, no paresthesia, no weakness Psych-no depression, no anxiety Physical Exam 2 Physical Exam: General-alert and oriented x3, no fever, no chills HEENT-head atraumatic and normocephalic, pupils equal and reactive to light, extraocular muscles intact Neck-no lymphadenopathy or thyromegaly, trachea midline Chest-clear to auscultation. No rales, wheezing or rhonchi Cardiac-regular rhythm. Controlled rate. Normal S1 and S2 Abdomen-normal bowel sounds, no hepatosplenomegaly Extremities-no cyanosis, clubbing, or edema Neuro-cranial nerves II through XII intact, motor and sensory function within normal limits, strength symmetrical, no focal deficits Psych-normal affect, normal mood Results & Data Results & Data Vital Signs (Past 12 Hours) Vital Signs Temp Pulse Resp BP BP Pulse Ox O2 Del Method 09/04/23 11:12 36.7 C 65 20 101/61 93 Room Air 09/04/23 10:42 36.5 C 78 14 104/72 100 Room Air 09/04/23 10:26 36.4 C L 130 H 14 121/84 100 Room Air 09/04/23 08:03 37.1 C 118 H 20 114/76 98 Room Air 09/04/23 03:33 36.8 C 115 H 20 116/79 95 Room Air Laboratory Results 09/02/23 14:10 09/03/23 05:46 PG Care Time/CCT Total # of Minutes Spent Total Time Spent with Patient: Total time spent is greater than 50% in coordination of care (as documented) at patient's floor/unit and/or counseling patient: Coding Level of Care Code 88990 SUB INP/OBS CARE 3/50MIN Diagnoses New onset atrial fibrillation I48.91 Hypotension I95.9 Acute gastritis without bleeding K29.00 Primary hypothyroidism E03.9 GERD (gastroesophageal reflux disease) K21.9
--- NOTE | 2023-09-04 13:58 | Discharge Summary ---
Date of Service September 04, 2023 Admission HPI Per Admitting Provider Patient is a 58 yo M w/ a PMHx of GERD (w/ cough), hypothyroidism, surgical Hx of colonoscopy, EGD, and arthroscopy of knee who presented with atrial fibrillation after getting an EGD earlier this morning. Currently, although he is in AFib, he is rate-controlled, after receiving metoprolol, 5 mg x 2 doses in ED, followed by diltiazem, 125 mg and diltiazem, 10 mg. Patient does not endorse currently feeling any palpitations, shortness of breath, weakness, fatigue, increased urinary frequency etc. Father also diagnosed with AFib about 5-10 years ago, and is currently ~ 96 years old. Patient able to ambulate to bathroom without feeling dizzy, lightheaded, or feeling like he'll lose his balance and fall. Patient without history of venous thromboembolism, T2DM, stroke, or HTN. Principal Diagnosis New onset atrial fibrillation with rapid ventricular response Discharge Exam General-alert and oriented x3, no fever, no chills HEENT-head atraumatic and normocephalic, pupils equal and reactive to light, extraocular muscles intact Neck-no lymphadenopathy or thyromegaly, trachea midline Chest-clear to auscultation. No rales, wheezing or rhonchi Cardiac-regular rhythm. Controlled rate. Normal S1 and S2 Abdomen-normal bowel sounds, no hepatosplenomegaly Extremities-no cyanosis, clubbing, or edema Neuro-cranial nerves II through XII intact, motor and sensory function within normal limits, strength symmetrical, no focal deficits Psych-normal affect, normal mood Discharge Data Allergies Allergy/AdvReac Type Severity Reaction Status Date / Time amoxicillin AdvReac Unknown Gastrointestinal Verified 09/02/23 11:43 Upset Consultations 09/02/23 16:55 ED Decision to Admit Stat 09/02/23 22:03 Consult Cardiology Routine Procedures Performed Operation Date: 09/04/23 10:30 Actual Procedures p Cardioversion - Yobany Wells MD Hospital Course (1) New onset atrial fibrillation: Telemetry. He was electively cardioverted today, September 03, back to normal sinus rhythm. He probably will be discharged home later today on Eliquis and metoprolol succinate. Low-dose losartan could be added at a later date if his blood pressure allows. He will follow-up with cardiology as an outpatient. Cardiac echo report noted. He has left ventricular systolic dysfunction which is global which will need further evaluation. (2) Hypotension: Acute onset on admission due to uncontrolled atrial fibrillation. Resolved with IV fluids (3) Acute gastritis without bleeding: Seen on outpatient EGD on September 01. Continue PPI therapy (4) Primary hypothyroidism: Stable. Continue current thyroid replacement therapy (5) GERD (gastroesophageal reflux disease): Currently on PPI therapy Plan Discharge to home today, September 03, on Eliquis and Toprol-XL Total Time Total Time Spent Total Time Spent (In Minutes): 50-minute Discharge Plan Discharge Items Patient Disposition: Home - Self-Care Reason For Visit: ATRIAL FIBRILLATION WITH RVR Discharge Diagnosis: New onset atrial fibrillation with rapid ventricular rate, left ventricular systolic dysfunction Activity: Resume your previous activity Non-emergency contact: Primary Care Provider and Room Service Waiter/Waitress Call non-emergency contact if: your symptoms worsen Follow-up/Referrals: Robin Dumont [Primary Care Provider] - Diet: Regular and Heart Healthy Addtl Attending Provider Instructions: Take Eliquis 5 mg twice a day and Toprol XL 25 mg daily. Follow-up with primary care provider and full stack python developer as soon as possible. Take Nexium daily as before to suppress stomach acid. Stop diclofenac until seen by primary care provider Pending Studies at Discharge: No Stand-Alone Forms: [facility] Visual Threat, Smoking Cessation Medications and DC Order Prescriptions: New Eliquis 5 mg tablet 5 mg PO BID Qty: 30 0RF metoprolol succinate 50 mg tablet extended release 24 hr 50 mg PO DAILY Qty: 20 0RF Continued levothyroxine 175 mcg capsule 175 mcg PO HS multivitamin Tablet 1 tab PO DAILY cholecalciferol (vitamin D3) [Vitamin D3] 25 mcg (1,000 unit) Tablet 25 mcg PO DAILY esomeprazole magnesium [Nexium] 40 mg Capsule,Delayed Release(Dr/Ec) 40 mg PO BID Discontinued diclofenac sodium 75 mg Tablet,Delayed Release (Dr/Ec) 75 mg PO BID Discharge Orders: Discharge Order (Routine); Ordered 09/04/23 Ordered By: Tariq Ty Admission Data Admit Date/Time: 09/02/23 19:51 Attending Provider: Tariq Ty Admit Provider: Yobany Stockton Primary Care Provider: Robin Dumont Other Providers: Roosevelt Jacobo; Yobany Wells Coding Level of Care Code 31688 INP/OBS DISCH >30 MIN Diagnoses New onset atrial fibrillation I48.91 Hypotension I95.9 Acute gastritis without bleeding K29.00 Primary hypothyroidism E03.9 GERD (gastroesophageal reflux disease) K21.9
[2023-09-08 08:03] LABS: Albumin 3.3 g/dL (3.8-4.8); Alpha 1 Globulin 0.3 g/dL (0.2-0.3); Alpha 2 Globulin 0.6 g/dL (0.5-0.9); Angiotensin Converting Enzyme 28 U/L (9-67); Beta-1-Globulin 0.5 g/dL (0.4-0.6); Beta-2-Globulin 0.4 g/dL (0.2-0.5); Gamma Globulin 1.2 g/dL (0.8-1.7); Monoclonal Protein Band 1 DNR g/dL (NONE DETECTED); Monoclonal Protein Band 2 DNR g/dL (NONE DETECTED); Monoclonal Protein Band 3 DNR g/dL (NONE DETECTED); Total Protein 6.2 g/dL (6.1-8.1)
--- NOTE | 2023-09-08 10:52 | Electrocardiogram Report ---
Test Reason : Blood Pressure : / mmHG Vent. Rate : 072 BPM Atrial Rate : 072 BPM P-R Int : 160 ms QRS Dur : 104 ms QT Int : 414 ms P-R-T Axes : 053 028 036 degrees QTc Int : 453 ms Normal sinus rhythm Incomplete right bundle branch block Borderline ECG When compared with ECG of 03-SEP-2023 16:40, Sinus rhythm has replaced Atrial fibrillation Confirmed by Trung Cole ([id number]) on 09/08/2023 10:52:15 AM Referred By: REFERRED SELF Confirmed By:Trung Cole
== END 2023-09-04 14:52 | disposition home or self-care (01) | DRG 310 ==
LOC: ED 13:29 → SUATTDRO 19:51 → 2E 19:51
DX: I34.0 Nonrheumatic mitral (valve) insufficiency; Z79.890 Hormone replacement therapy; Z88.1 Allergy status to other antibiotic agents; K29.00 Acute gastritis without bleeding; E03.8 Other specified hypothyroidism; I42.8 Other cardiomyopathies; I48.91 Unspecified atrial fibrillation; Z98.890 Other specified postprocedural states; R05.3 Chronic cough; K21.9 Gastro-esophageal reflux disease without esophagitis